=== PATIENT | male | born 1995 | race Caucasian/White ===

== ENCOUNTER 2021-11-29 16:41 | Emergency (ER) | payer OTHER, MEDICAID, SELFPAY ==
[2021-11-29 16:45] VITALS: BP 129/84; PULSE 97; RESP 16; TEMP 35.9; O2SAT 97; BMI 28.8
[2021-11-29 17:07] LABS: Add Manual Diff / Slide Review NO; Basophils Absolute Auto 100 /uL (0-100); Basophils Percent Auto 0.4 % (0-2); Eosinophils Absolute Auto 300 /uL (0-450); Eosinophils Percent Auto 1.7 % (2-4); Hematocrit 47.1 % (41-53); Lymphocytes Absolute Auto 1700 /uL (1100-4500); Lymphocytes Percent Auto 10.1 % (25-40); Mean Corpuscular Hemoglobin 28.1 PG (26-34); Mean Corpuscular Volume 82.5 fL (80-100); Monocytes Absolute Auto 800 /uL (0-900); Monocytes Percent Auto 4.7 % (3-14); Neutrophils Absolute Auto 13800 /uL (1500-7000); Neutrophils Percent Auto 83.1 % (50-75); Platelet Count 376 X10^3/uL (150-400); Red Blood Cell Count 5.71 X10^6/uL (4.5-5.9); Red Cell Distribution Width 14.1 % (11.6-14.8); White Blood Cell Count 16.6 X10^3/uL (4.5-11.0)
--- NOTE | 2021-11-29 17:31 | DI.US.S_ITS ---
PROCEDURE: US ABDOMEN LIMITED INDICATIONS: RUQ pain after eating today, elevated WBC peek over appendix TECHNIQUE: Real-time focused scanning was performed of the abdomen, with image documentation. COMPARISON: None. FINDINGS: Marked diffuse increased echogenicity of the liver is consistent with diffuse hepatic steatosis. There are gallstones in the gallbladder. Gallbladder wall is at the upper limits of normal. No pain identified on examination. Extrahepatic biliary tree and pancreas are not visualized. No dilated intrahepatic ducts are seen. IMPRESSION: 1. Diffuse hepatic steatosis. 2. Cholelithiasis. Dictated by: Dong Rose M.D. on 11/29/2021 at 18:37 Approved by: Dong Rose M.D. on 11/29/2021 at 18:38
--- NOTE | 2021-11-29 17:31 | ED_ITS ---
HPI - Abdominal Pain <HERNY Maradiaga - Last Filed: 11/29/21 20:22> General Chief Complaint: Abdominal Pain Stated Complaint: Epigastric pain Time Seen by Provider: 11/29/21 17:10 History of Present Illness HPI narrative: This is a 26-year-old male with a history of autism who presents to the emergency department for sharp epigastric pain after patient ate rice a mallory today without history of fever, vomiting, abdominal pain, or history of this in the past. Patient was brought to the emergency department via ambulance, he received Zofran and fentanyl EN route and patient reports that his pain was suddenly improved and he no longer has any pain after this was given. Patient's primary care provider is Dr. Etienne. Patient's mother is EN route to the emergency department, she is currently not here. Patient denies any nausea, abdominal pain at this time, denies any abdominal pain with palpation, denies any flank pain, diarrhea, constipation, dysuria, urinary retention or changes to his urine or stool. Patient states that the rice a runny has milk, water and butter in it and he has never had this pain from this in the past. Related Data Allergies Allergy/AdvReac Type Severity Reaction Status Date / Time Penicillins AdvReac Verified 11/29/21 16:54 Review of Systems <HENRY Maradiaga - Last Filed: 11/29/21 20:22> Review of Systems Narrative: General: denies fever, chills, malaise, sweats, fatigue Head/Neck: denies headache, neck pain, dizziness Eyes: denies visual changes, eye pain Cardio: denies chest pain, palpitations, edema Respiratory: denies dyspnea, cough, orthopnea GI: denies abdominal pain, nausea, vomiting, or diarrhea, endorses nausea earlier and epigastric pain after eating : denies dysuria, hematuria, urinary retention, frequency or incontinence MSK: denies joint pain, muscle weakness Skin: denies rash, itching, skin lesions or other Neuro: denies numbness, tingling Exam <HENRY Maradiaga - Last Filed: 11/29/21 20:22> Narrative Exam Narrative: Independently reviewed vitals signs and nursing notes. General: cooperative, comfortable, in no acute distress, well groomed Head: atraumatic, symmetrical facial expressions Neck: supple Eyes: equal round and reactive, EOMI, conjunctiva normal Nose: nares patent, no rhinorrhea Mouth/Throat: moist mucus membranes Cardiovascular: regular rate and rhythm, no peripheral edema, warm extremities Respiratory: normal effort, able to speak in complete sentences, no audible wheezing, stridor, or rales. No retractions or tachypnea. GI: abdomen soft, nontender to palpation, nondistended, no masses, no exquisite tenderness with exam, without guarding or rebound. No tenderness over right upper quadrant or epigastrium to palpation, bowel sounds are active. MSK: moves all extremities, neurovascularly intact, no weakness, normal tone Skin: brisk capillary refill, no rash, no erythema Neuro: normal speech and cognition, A&O x3 Psych: mental status is grossly normal, congruent mood, normal affect, pleasant and cooperative Initial Vital Signs Initial Vital Signs: Vital Signs Temperature 96.7 F L 11/29/21 16:45 Pulse Rate 97 H 11/29/21 16:45 Respiratory Rate 16 11/29/21 16:45 Blood Pressure 129/84 11/29/21 16:45 Pulse Oximetry 97 11/29/21 16:45 Oxygen Delivery Method 11/29/21 16:45 <Maty Boyce DO - Last Filed: 12/01/21 07:16> Initial Vital Signs Initial Vital Signs: Vital Signs Temperature 96.7 F L 11/29/21 16:45 Pulse Rate 97 H 11/29/21 16:45 Respiratory Rate 16 11/29/21 16:45 Blood Pressure 129/84 11/29/21 16:45 Pulse Oximetry 97 11/29/21 16:45 Oxygen Delivery Method 11/29/21 16:45 Course <HENRY Maradiaga - Last Filed: 11/29/21 20:22> Orders Ordered: ED Orders 11/29/21 17:00 Complete Blood Count AUTO DIFF Stat Comprehensive Metabolic Panel Stat Lipase Stat 11/29/21 17:31 US abdomen limited Stat 11/29/21 17:59 Ictotest Urine Stat UA Complete [Urinalysis and Microscopic] Stat 11/29/21 18:58 CT abdomen pelvis w con Stat Vital Signs Vital signs: Vital Signs - 8 hr 11/29/21 16:45 Temperature 96.7 F L Pulse Rate 97 H Respiratory Rate 16 Blood Pressure 129/84 Pulse Oximetry 97 Oxygen Delivery Method Room Air <Maty Boyce DO - Last Filed: 12/01/21 07:16> Orders Ordered: ED Orders 11/29/21 17:00 Complete Blood Count AUTO DIFF Stat Comprehensive Metabolic Panel Stat Lipase Stat 11/29/21 17:31 US abdomen limited Stat 11/29/21 17:59 Ictotest Urine Stat UA Complete [Urinalysis and Microscopic] Stat 11/29/21 18:58 CT abdomen pelvis w con Stat Vital Signs Vital signs: Vital Signs - 8 hr 11/29/21 16:45 Temperature 96.7 F L Pulse Rate 97 H Respiratory Rate 16 Blood Pressure 129/84 Pulse Oximetry 97 Oxygen Delivery Method Room Air MDM - Abdominal Pain <HENRY Maradiaga - Last Filed: 11/29/21 20:22> Lab Data Result diagrams: 11/29/21 17:00 11/29/21 17:00 Labs: Lab Results 11/29/21 11/29/21 11/29/21 Range/Units 17:00 17:00 17:59 WBC 16.6 H (4.5-11.0) X10^3/uL RBC 5.71 (4.5-5.9) X10^6/uL Hgb 16.0 (13.5-17.5) g/dL Hct 47.1 (41-53) % MCV 82.5 (80-100) fL MCH 28.1 (26-34) PG MCHC 34.0 (30-36) % RDW 14.1 (11.6-14.8) % Plt Count 376 (150-400) X10^3/uL Neut % (Auto) 83.1 H (50-75) % Lymph % (Auto) 10.1 L (25-40) % [place] % (Auto) 4.7 (3-14) % Eos % (Auto) 1.7 L (2-4) % Baso % (Auto) 0.4 (0-2) % Neut # (Auto) 74192 H (5808-2089) /uL Lymph # (Auto) 1700 (9149-4216) /uL [place] # (Auto) 800 (0-900) /uL Eos # (Auto) 300 (0-450) /uL Baso # (Auto) 100 (0-100) /uL Sodium 140 (137-145) mmol/L Potassium 3.7 (3.4-5.1) mmol/L Chloride 107 (98-107) mmol/L Carbon Dioxide 22 (22-32) mmol/L BUN 11 (9-20) mg/dL Creatinine 0.88 (0.66-1.25) mg/dL Estimated GFR > 60 (>60) mL/min BUN/Creatinine Ratio 12.5 (6-22) Glucose 145 H (70-100) mg/dL Calcium 9.7 (8.4-10.2) mg/dL Total Bilirubin 1.7 H (0.2-1.3) mg/dL AST 99 H (17-59) IU/L ALT 77 H (<50) IU/L Alkaline Phosphatase 68 (38-126) U/L Total Protein 8.0 (6.3-8.2) g/dL Albumin 4.7 (3.5-5.0) g/dL Globulin 3.3 (1.7-4.1) g/dL Albumin/Globulin Ratio 1.4 (1.0-2.8) Lipase 97 (23-300) U/L Urine Color Yellow Urine Appearance Clear Urine pH 7.0 (4.5-8.0) Ur Specific [place] 1.015 (1.000-1.035) Urine Protein Trace H (Negative) Urine Glucose (UA) Negative (Negative) g/dL Urine Ketones 1+ H (NEGATIVE) Urine Occult Blood Negative (Negative) Urine Nitrate Negative (Negative) Urine Bilirubin Negative (NEGATIVE) Ur Bilirubin Confirm (Negative) Urine Urobilinogen 1.0 (0.2) E.U./dL Ur Leukocyte Esterase Negative (NEGATIVE) Urine RBC None seen (0-5/HPF) Urine WBC 0-1/hpf (0-5/HPF) Ur Squamous Epith Cells None seen (0-5/HPF) Urine Bacteria Occasional (0-1) (None) Urine Mucus 2+ H (Negative) Ur Culture Indicated? Cult not indicated 11/29/21 Range/Units 17:59 WBC (4.5-11.0) X10^3/uL RBC (4.5-5.9) X10^6/uL Hgb (13.5-17.5) g/dL Hct (41-53) % MCV (80-100) fL MCH (26-34) PG MCHC (30-36) % RDW (11.6-14.8) % Plt Count (150-400) X10^3/uL Neut % (Auto) (50-75) % Lymph % (Auto) (25-40) % [place] % (Auto) (3-14) % Eos % (Auto) (2-4) % Baso % (Auto) (0-2) % Neut # (Auto) (0922-4854) /uL Lymph # (Auto) (3803-2260) /uL [place] # (Auto) (0-900) /uL Eos # (Auto) (0-450) /uL Baso # (Auto) (0-100) /uL Sodium (137-145) mmol/L Potassium (3.4-5.1) mmol/L Chloride (98-107) mmol/L Carbon Dioxide (22-32) mmol/L BUN (9-20) mg/dL Creatinine (0.66-1.25) mg/dL Estimated GFR (>60) mL/min BUN/Creatinine Ratio (6-22) Glucose (70-100) mg/dL Calcium (8.4-10.2) mg/dL Total Bilirubin (0.2-1.3) mg/dL AST (17-59) IU/L ALT (<50) IU/L Alkaline Phosphatase (38-126) U/L Total Protein (6.3-8.2) g/dL Albumin (3.5-5.0) g/dL Globulin (1.7-4.1) g/dL Albumin/Globulin Ratio (1.0-2.8) Lipase (23-300) U/L Urine Color Urine Appearance Urine pH (4.5-8.0) Ur Specific [place] (1.000-1.035) Urine Protein (Negative) Urine Glucose (UA) (Negative) g/dL Urine Ketones (NEGATIVE) Urine Occult Blood (Negative) Urine Nitrate (Negative) Urine Bilirubin (NEGATIVE) Ur Bilirubin Confirm Negative (Negative) Urine Urobilinogen (0.2) E.U./dL Ur Leukocyte Esterase (NEGATIVE) Urine RBC (0-5/HPF) Urine WBC (0-5/HPF) Ur Squamous Epith Cells (0-5/HPF) Urine Bacteria (None) Urine Mucus (Negative) Ur Culture Indicated? Point of care testing: Urine Dip Bedside Urine Glucose Negative Bedside Urine Bilirubin + 1 Bedside Urine Ketone +/- 5 Urine Specific [place] 1.015 Bedside Urine Occult Blood - Negative Bedside Urine pH 6.5 Bedside Urine Protein + 30 Bedside Urine Urobilinogen +/- 1mg Bedside Urine Nitrite - Negative Bedside Urine Leukocytes - Negative Esterase Imaging Data US - abdomen: Radiologist's Impression: PROCEDURE: US ABDOMEN LIMITED ? INDICATIONS:? RUQ pain after eating today, elevated WBC peek over appendix ? TECHNIQUE:? Real-time focused scanning was performed of the abdomen, with image documentation.? ? COMPARISON:? None. ? FINDINGS:? Marked diffuse increased echogenicity of the liver is consistent with diffuse hepatic steatosis. ? There are gallstones in the gallbladder.? Gallbladder wall is at the upper limits of normal.? No pain identified on examination. ? Extrahepatic biliary tree and pancreas are not visualized.? No dilated intrahepatic ducts are seen. ? IMPRESSION:? ? 1. Diffuse hepatic steatosis. ? 2. Cholelithiasis. ? ? Dictated by: Dong Rose M.D. on 11/29/2021 at 18:37 ? ? Approved by: Dong Rose M.D. on 11/29/2021 at 18:38 ? CT scan - abdomen/pelvis: Radiologist's Impression: PROCEDURE:? CT ABDOMEN PELVIS W CON ? INDICATIONS:? cholelithiasis, and hepatic steatosis eval ductal system plz ? TECHNIQUE:? After the administration of intravenous contrast, axial sections acquired from the lung bases to the pubic symphysis.? Coronal and sagittal reformats were performed.? For radiation dose reduction, the following was used:? automated exposure control, adjustment of mA and/or kV according to patient size.? ? [facility] [place], 11/29/2021, 19:03. ? FINDINGS:? Image quality:? Excellent.? ? Lung bases:? Unremarkable. Heart:? No significant findings. ? ABDOMEN: Liver:? Diffuse hepatic steatosis.? No dilated intrahepatic ducts.? There is a focal area of mildly increased density in the central portion of the left lobe measuring 2.5 cm, possibly representing a hemangioma..? ? Gallbladder:? A non calcified gallstone is identified in the gallbladder.? The gallbladder is somewhat contracted.? ? Biliary ducts:? Unremarkable.? ? Pancreas:? Unremarkable.? ? Spleen:? Unremarkable.? ? Adrenal Glands:? Unremarkable.? ? Kidneys and Ureters:? Unremarkable.? ? ? Stomach and Bowel:? Stomach, small bowel loops, and colon are unremarkable.? Peritoneum:? No abnormal intraperitoneal fluid.? No free air.?? Ventral Wall: ? No hernias.? Abdominal Nodes:? No retroperitoneal or mesenteric adenopathy by size criteria.? Vessels:? Aorta and inferior vena cava are normal in size.? ? PELVIS: Pelvic Organs:? Unremarkable.? ? Bladder:? Unremarkable.? ? Pelvic Nodes: No enlarged lymph nodes.? Miscellaneous: No hernias are seen. ? ? ? Bones:? Mild chronic anterior vertebral body height loss of T11 and T12..? IMPRESSION:? ? 1. Diffuse hepatic steatosis.? Question incidental 2.5 cm hepatic hemangioma. ? 2. Cholelithiasis. ? 3. No evidence of acute abdominal process. ? 4. No dilated ducts.? ? Dictated by: Dong Rose M.D. on 11/29/2021 at 19:33 ? ? Approved by: Dong Rose M.D. on 11/29/2021 at 19:37 ? MDM Narrative Medical decision making narrative: This is a pleasant 26-year-old male who has a history of autism, was brought in by ambulance to the emergency department today for epigastric pain after eating, no history of this in the past. Patient reports feeling nauseated and having sharp pain that he was given Zofran and fentanyl in route to the emergency department which improved his symptoms, he denies any nausea vomiting, abdominal pain or any other symptom at this time. His lab work is remarkable for leukocytosis with a WBC of 16.6, predominantly neutrophils, total bilirubin is elevated to 1.7, AST is 99, ALT is 77, no other elevation of his liver enzymes without any priors to compare to. Urinalysis is without any wbc's, leukocyte esterase, blood, or nitrites. Patient is afebrile, was non-tender to abdominal exam, right upper quadrant ultrasound shows enlarged liver and cholelithiasis. CT abdomen obtained as biliary tree and pancreas were not visualized. Abdominal CT with pelvis shows diffuse hepatic steatosis, questionable incidental 2.5 cm hepatic hemangioma. Cholelithiasis, no evidence of acute abdominal process, no dilated ducts. Patient is afebrile, was nontender to palpation, was nontender to abdominal ultrasound, patient was given strict return precautions for any worsening of his symptoms, this is most likely cholelithiasis without evidence of cholecystitis. He is nontoxic appearing. Patient reports that there was a in the family five days ago and his mom is distraught and that is why she was unable to be here in the emergency department with him. She states that she has been tremulous all day but will get another person to come with her to pick him up at the hospital. He was given contact information for [facility] for follow-up about his cholelithiasis. He is encouraged to return to the emergency department if his pain is out of control, if it returns, recommended trying some Tylenol, sticking to a low-fat diet, staying hydrated, and returning if he feels any worse. No peritoneal signs on abdominal exam. Patient remains p.o. tolerant. Serial abdominal exam without increase in abdominal pain. Given history and exam, low suspicion for other acute abdominal process, pancreatitis, perforated viscus, atypical appendicitis, colitis, diverticulitis or torsion. Extensive conversation about ER return precautions and need for close follow-up. Patient is appropriate and amenable to discharge home. Vital signs are stable on repeat examination is unremarkable. Patient has been informed of results. Patient has been given strict return to ER precautions for any new or worsening symptoms. Patient understands to follow up closely with outpatient providers as instructed. Patient understands plan and agrees to discharge home. All questions and concerns answered at this time. <Maty Boyce, DO - Last Filed: 12/01/21 07:16> Lab Data Labs: Lab Results 11/29/21 11/29/21 11/29/21 Range/Units 17:00 17:00 17:59 WBC 16.6 H (4.5-11.0) X10^3/uL RBC 5.71 (4.5-5.9) X10^6/uL Hgb 16.0 (13.5-17.5) g/dL Hct 47.1 (41-53) % MCV 82.5 (80-100) fL MCH 28.1 (26-34) PG MCHC 34.0 (30-36) % RDW 14.1 (11.6-14.8) % Plt Count 376 (150-400) X10^3/uL Neut % (Auto) 83.1 H (50-75) % Lymph % (Auto) 10.1 L (25-40) % [place] % (Auto) 4.7 (3-14) % Eos % (Auto) 1.7 L (2-4) % Baso % (Auto) 0.4 (0-2) % Neut # (Auto) 52085 H (1654-0361) /uL Lymph # (Auto) 1700 (9125-9449) /uL [place] # (Auto) 800 (0-900) /uL Eos # (Auto) 300 (0-450) /uL Baso # (Auto) 100 (0-100) /uL Sodium 140 (137-145) mmol/L Potassium 3.7 (3.4-5.1) mmol/L Chloride 107 (98-107) mmol/L Carbon Dioxide 22 (22-32) mmol/L BUN 11 (9-20) mg/dL Creatinine 0.88 (0.66-1.25) mg/dL Estimated GFR > 60 (>60) mL/min BUN/Creatinine Ratio 12.5 (6-22) Glucose 145 H (70-100) mg/dL Calcium 9.7 (8.4-10.2) mg/dL Total Bilirubin 1.7 H (0.2-1.3) mg/dL AST 99 H (17-59) IU/L ALT 77 H (<50) IU/L Alkaline Phosphatase 68 (38-126) U/L Total Protein 8.0 (6.3-8.2) g/dL Albumin 4.7 (3.5-5.0) g/dL Globulin 3.3 (1.7-4.1) g/dL Albumin/Globulin Ratio 1.4 (1.0-2.8) Lipase 97 (23-300) U/L Urine Color Yellow Urine Appearance Clear Urine pH 7.0 (4.5-8.0) Ur Specific [place] 1.015 (1.000-1.035) Urine Protein Trace H (Negative) Urine Glucose (UA) Negative (Negative) g/dL Urine Ketones 1+ H (NEGATIVE) Urine Occult Blood Negative (Negative) Urine Nitrate Negative (Negative) Urine Bilirubin Negative (NEGATIVE) Ur Bilirubin Confirm (Negative) Urine Urobilinogen 1.0 (0.2) E.U./dL Ur Leukocyte Esterase Negative (NEGATIVE) Urine RBC None seen (0-5/HPF) Urine WBC 0-1/hpf (0-5/HPF) Ur Squamous Epith Cells None seen (0-5/HPF) Urine Bacteria Occasional (0-1) (None) Urine Mucus 2+ H (Negative) Ur Culture Indicated? Cult not indicated 11/29/21 Range/Units 17:59 WBC (4.5-11.0) X10^3/uL RBC (4.5-5.9) X10^6/uL Hgb (13.5-17.5) g/dL Hct (41-53) % MCV (80-100) fL MCH (26-34) PG MCHC (30-36) % RDW (11.6-14.8) % Plt Count (150-400) X10^3/uL Neut % (Auto) (50-75) % Lymph % (Auto) (25-40) % [place] % (Auto) (3-14) % Eos % (Auto) (2-4) % Baso % (Auto) (0-2) % Neut # (Auto) (8978-5153) /uL Lymph # (Auto) (1670-3691) /uL [place] # (Auto) (0-900) /uL Eos # (Auto) (0-450) /uL Baso # (Auto) (0-100) /uL Sodium (137-145) mmol/L Potassium (3.4-5.1) mmol/L Chloride (98-107) mmol/L Carbon Dioxide (22-32) mmol/L BUN (9-20) mg/dL Creatinine (0.66-1.25) mg/dL Estimated GFR (>60) mL/min BUN/Creatinine Ratio (6-22) Glucose (70-100) mg/dL Calcium (8.4-10.2) mg/dL Total Bilirubin (0.2-1.3) mg/dL AST (17-59) IU/L ALT (<50) IU/L Alkaline Phosphatase (38-126) U/L Total Protein (6.3-8.2) g/dL Albumin (3.5-5.0) g/dL Globulin (1.7-4.1) g/dL Albumin/Globulin Ratio (1.0-2.8) Lipase (23-300) U/L Urine Color Urine Appearance Urine pH (4.5-8.0) Ur Specific [place] (1.000-1.035) Urine Protein (Negative) Urine Glucose (UA) (Negative) g/dL Urine Ketones (NEGATIVE) Urine Occult Blood (Negative) Urine Nitrate (Negative) Urine Bilirubin (NEGATIVE) Ur Bilirubin Confirm Negative (Negative) Urine Urobilinogen (0.2) E.U./dL Ur Leukocyte Esterase (NEGATIVE) Urine RBC (0-5/HPF) Urine WBC (0-5/HPF) Ur Squamous Epith Cells (0-5/HPF) Urine Bacteria (None) Urine Mucus (Negative) Ur Culture Indicated? Point of care testing: Urine Dip Bedside Urine Glucose Negative Bedside Urine Bilirubin + 1 Bedside Urine Ketone +/- 5 Urine Specific [place] 1.015 Bedside Urine Occult Blood - Negative Bedside Urine pH 6.5 Bedside Urine Protein + 30 Bedside Urine Urobilinogen +/- 1mg Bedside Urine Nitrite - Negative Bedside Urine Leukocytes - Negative Esterase Discharge Plan Departure Patient Disposition: Home Clinical Impression: Fatty infiltration of liver Cholelithiasis Qualifiers: Cholelithiasis location: gallbladder Cholecystitis presence: without cholecystitis Biliary obstruction: without biliary obstruction Qualified Code(s): K80.20 - Calculus of gallbladder without cholecystitis without obstruction Instructions: Eating a Diet Low in Saturated Fat, Trans Fat, and Cholesterol, DI for Gallstones Activity Restrictions/Additional Instructions: *You have been diagnosed with gallstones in your gallbladder. This is painful after a meal with a high fat content. Please avoid fatty meals for the next few days, stay hydrated and drink plenty of water. If you have pain like this again, take some Tylenol, and come back to the emergency department for eval uation. If this pain comes worse, please come back right away. Please follow- up with your primary care provider Dr. Jiménez as needed, please call and schedule an appointment with Dr. Baird from [facility] for evaluation of your gallbladder if you continue to have pain. Sometimes surgical removal of the gallbladder is indicated. It appears that it is inflamed and that you had pain today but this might go down with a low-fat diet, rest, and sometime. You can try ibuprofen and/or Tylenol for pain, return to the emergency department if this becomes significantly painful again. *What to do: *Please continue to take your regular medications as directed. [ ] New medication prescriptions sent to your pharmacy: [ ] [ ] New medication written as a paper prescription [x] No new medications given *Please follow up with your primary care provider in 2-3 days, call for an appointment. Let them know you were seen in the Emergency Department and that we asked that you be seen for follow-up. We will electronically transmit a record of today's note if your PCP is in our system *If you do not have a primary care provider please contact [phone] to establish care with one of the [facility] primary care providers. *Return to Emergency Department if you should have any new, worsening or concerning symptoms, such as [fever greater than 101F, chills, worsening pain, persistent vomiting or other bothersome symptoms] Referrals: [facility] [Provider Group] - 3-5 days (for cholelithiasis) Amos Etienne MD [Primary Care Provider] - Visit Report Forms: Patient Portal/API <Maty Boyce DO - Last Filed: 12/01/21 07:16> Cosign ED Attending Aaronature Attestation: I was immediately available in the department for consultation. Documentation has been reviewed. I agree with assessment and plan.
[2021-11-29 17:32] LABS: Alanine Aminotransferase 77 IU/L (<50); Albumin 4.7 g/dL (3.5-5.0); Albumin Globulin Ratio 1.4 (1.0-2.8); Alkaline Phosphatase 68 U/L (38-126); Aspartate Aminotransferase 99 IU/L (17-59); BUN Creatinine Ratio 12.5 (6-22); Bilirubin Total 1.7 mg/dL (0.2-1.3); Blood Urea Nitrogen 11 mg/dL (9-20); Calcium 9.7 mg/dL (8.4-10.2); Carbon Dioxide 22 mmol/L (22-32); Chloride 107 mmol/L (98-107); Estimated Glomerular Filt Rate > 60 mL/min (>60); Globulin 3.3 g/dL (1.7-4.1); Glucose 145 mg/dL (70-100); HEMOLYSIS 20 (0-50); Lipase 97 U/L (23-300); Potassium 3.7 mmol/L (3.4-5.1); Sodium 140 mmol/L (137-145)
[2021-11-29 18:05] LABS: Ictotest Urine Negative (Negative)
[2021-11-29 18:19] LABS: Appearance Urine UA CLEAR; Color Urine UA YELLOW; Glucose Urine UA NEGATIVE (Negative); Ketones Urine UA 1+ (NEGATIVE); Leukocyte Esterase Urine UA NEGATIVE (NEGATIVE); Nitrite Urine UA NEGATIVE (Negative); Occult Blood Urine UA NEGATIVE (Negative); Protein Urine UA TRACE (Negative); Specific Gravity Urine UA 1.015 (1.000-1.035)
[2021-11-29 18:27] LABS: Bilirubin Urine UA Negative (NEGATIVE)
[2021-11-29 18:49] LABS: RBC Urine None Seen (0-5/HPF)
[2021-11-29 18:50] LABS: Culture Indicated Urine Cult Not Indicated; Mucus Urine 2+ (Negative); Squamous Epithelial Cell Urine None Seen (0-5/HPF); WBC Urine 0-1/HPF (0-5/HPF)
--- NOTE | 2021-11-29 18:58 | DI.CT.S_ITS ---
PROCEDURE: CT ABDOMEN PELVIS W CON INDICATIONS: cholelithiasis, and hepatic steatosis eval ductal system plz TECHNIQUE: After the administration of intravenous contrast, axial sections acquired from the lung bases to the pubic symphysis. Coronal and sagittal reformats were performed. For radiation dose reduction, the following was used: automated exposure control, adjustment of mA and/or kV according to patient size. [facility], 11/29/2021, 19:03. FINDINGS: Image quality: Excellent. Lung bases: Unremarkable. Heart: No significant findings. ABDOMEN: Liver: Diffuse hepatic steatosis. No dilated intrahepatic ducts. There is a focal area of mildly increased density in the central portion of the left lobe measuring 2.5 cm, possibly representing a hemangioma.. Gallbladder: A non calcified gallstone is identified in the gallbladder. The gallbladder is somewhat contracted. Biliary ducts: Unremarkable. Pancreas: Unremarkable. Spleen: Unremarkable. Adrenal Glands: Unremarkable. Kidneys and Ureters: Unremarkable. Stomach and Bowel: Stomach, small bowel loops, and colon are unremarkable. Peritoneum: No abnormal intraperitoneal fluid. No free air. Ventral Wall: No hernias. Abdominal Nodes: No retroperitoneal or mesenteric adenopathy by size criteria. Vessels: Aorta and inferior vena cava are normal in size. PELVIS: Pelvic Organs: Unremarkable. Bladder: Unremarkable. Pelvic Nodes: No enlarged lymph nodes. Miscellaneous: No hernias are seen. Bones: Mild chronic anterior vertebral body height loss of T11 and T12.. IMPRESSION: 1. Diffuse hepatic steatosis. Question incidental 2.5 cm hepatic hemangioma. 2. Cholelithiasis. 3. No evidence of acute abdominal process. 4. No dilated ducts. Dictated by: Dong Rose M.D. on 11/29/2021 at 19:33 Approved by: Dong Rose M.D. on 11/29/2021 at 19:37
[2021-11-29 19:01] LABS: Bacteria Urine Occasional (0-1)
[2021-11-29 20:26] VITALS: BP 128/78; PULSE 89; RESP 19; O2SAT 99
== END 2021-11-29 20:26 | disposition home or self-care (01) ==
PROVIDERS: Emergency Medicine; Emergency Provider Nurse Practitioner Critical Care Medicine; PCP Family Medicine
DX: K80.20 Calculus of gallbladder without cholecystitis without obstruction (principal); K76.0 Fatty (change of) liver, not elsewhere classified; F84.0 Autistic disorder
CPT/HCPCS: 36415; 74177; 76705; 80053; 81001; 81003; 83690; 85025; 99284; Q9967